=== PATIENT | male | born 2000 | race African-American/Black ===

== ENCOUNTER 2023-02-24 20:53 | Inpatient (IN) | payer BC, SELFPAY ==
--- NOTE | 2023-02-24 22:30 | PC.ADMIT ---
PT IS A 22 YEAR OLD, BLACK, CISGENDER MALE ADMITTED FROM [facility]. PT IS A COLLEGE SENIOR AT [employer] WHO WENT TO [facility] AFTER TELLING HIS SWITCH ENGINEER HE FELT A LITTLE DOWN . CT APPEARS WITH SYMPTOMS OF PSYCHOSIS, RESPONDING TO INTERNAL STIMULI. PT APPEARS PARANOID UPON ADMISSION, ASKING FOR FOOD BUT NOT ACCEPTING IT BECAUSE HE DIDNT SEE IT BE MADE . PT IS AVOIDANT, ONLY ANSWERING QUESTIONS INTERMITTENTLY AND AVOIDING EYE CONTACT. PT DID NOT WANT TO SIGN LEGALS AT THIS TIME BUT DID SIGN A CONDITIONAL VOLUNTARY. PLACED ON 15 MINUTE CHECKS AND ORIENTED TO THE UNIT. PTS TOX SCREEN WAS POSITIVE FOR MARIJUANA ONLY. HIS PARENTS REPORT THAT THIS HAS OCCURRED BEFORE, STATING WHEN HE SMOKES WEED, HE STARTS TO DEVELOP THESE SYMPTOMS . PT STARES BLANKLY MID SENTENCE. PT HAS NO MENTAL HEALTH PROVIDERS AND IS NOT CURRENTLY ON MEDICATIONS. PTS ASSIGNED TO STRUCTURED GROUPS. VITAL SIGNS STABLE. LABS WNL. NO KNOWN ALLERGIES. PT HAS BEEN FAILING HIS CLASSES, CAUSING HIM TO GO TO SUMMER CLASS WHICH HE IS FAILING. PTS FAMILY RESIDES IN [place], WHERE HE STAYS WHEN HE IS NOT AT SCHOOL. PT HAS A DIAGNOSIS OF UNSPECIFIED SCHIZOPHRENIA. NO REPORTED DEPRESSION, AH, OR VH BUT APPEARS TO BE RESPONDING. PT DENIES SI OR HI. PT DOES NOT USE TOBACCO AND ONLY OCCASIONALLY DRINKS ALCOHOL.
[2023-02-25 06:00] VITALS: RESP 16
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
--- NOTE | 2023-02-25 13:04 | HO.PM.IMCN ---
History of Present Illness Data of Consult Service Date: 02/25/23 Primary Care Provider: Unknown Physician HPI Reason for consult: Admission H&P Pt is a 22-year-old male with no significant PMH not on home medications who is admitted to [facility] psychiatry unit after telling his cross country/track and field coach at [facility] he was feeling ?a little down ?and was sent to the ED where he presented with symptoms of psychosis and struggling to communicate in a meaningful way. Medical consult for admission H&P. ?Patient has no acute medical complaints. Denies chest pain/pressure, palpitations. No shortness of breath. Denies fever, chills, nausea, vomiting, diarrhea. No headache, vision changes. Review of Systems Review of Systems: Patient has no acute medical complaints Yes all other systems are reviewed and are negative [facility] Social History Household Members: Family and None Household Members Other:: fam when home from college. alone at college. Housing: Other Housing Other:: [facility] Dorm Do you presently have visiting nurse or other home services: No Patient Tobacco Use Status: Never used Tobacco Smoked in Last 30 Days: No e-Cigarette/Vaping Use: Never Used Patient Interested in Nicotine Replacement: No Patient Given Instructions on How to Stop Smoking: No Second Hand Smoke Exposure: No Use of substances other than those prescribed or required for medical reasons: Yes Substance Use Type: Marijuana Substance Use Frequency: Occasionally Last Used Substance: Days (ago) Currently Displaying Signs/Symptoms of Drug Intoxication Withdrawal: No Any prior treatment program specific to substance use: No Have you been hit, kicked, punched, or otherwise hurt by someone within the past year? If so, by whom?: No Do you feel safe in your current relationship?: No Current Relationship Is there a partner from a previous relationship who is making you feel unsafe now?: No Are you made to feel afraid or neglected: No Advance Directives: No Advance Directives Information Provided: No Do you have thoughts of harming others: None Do you have a plan to hurt others: No Plan Recently lost weight without trying: No Eating poorly because of decreased appetite: No Nutrition Risks: No Nutritional Risk Poor oral hygiene: No Meds Allergies Allergy/AdvReac Type Severity Reaction Status Date / Time No Known Allergies Allergy Verified 02/24/23 21:37 Active Medications: Current Medications Acetaminophen (Acetaminophen 325 Mg Tablet) 650 mg PO Q6H PRN PRN Reason: Headache/Pain Mild Scale (1-3) Al Hydroxide/Mg Hydroxide (Magnesium Hydrox/Alum Hydrox 30 Ml Oral.Susp) 30 ml PO Q6H PRN PRN Reason: Heartburn/Nausea Hydroxyzine HCl (Hydroxyzine Hcl 25 Mg Tablet) 25 mg PO Q6H PRN PRN Reason: Anxiety Magnesium Hydroxide (Milk Of Magnesia 30 Ml Oral.Susp) 30 ml PO DAILY PRN PRN Reason: Constipation Trazodone HCl (Trazodone Hcl 50 Mg Tablet) 50 mg PO BEDTIME MRX1 PRN PRN Reason: Insomnia Physical Exam Vital Signs and Narrative: Vital Signs: Last Vital Signs Resp 16 02/25/23 06:00 BMI result Body Mass Index 30.0 General: AOx3, no acute distress Resp: CTA bilaterally CVS: S1, S2, RRR GI: +BS, NT, no distention Skin: No rash Neuro: Cranial nerves II-XII grossly intact bilaterally. Motor grossly intact bilaterally Extremities: No edema Psych: Pt appears distracted, stares off into space, mostly cooperative with HPI and exam Assessment and Plan (1) Routine history and physical examination of adult: Status: Acute Plan Pt is a 22-year-old male with no significant PMH not on home medications who is admitted to [facility] psychiat[facility] unit after telling his cross country/track and field coach at [facility] he was feeling ?a little down ?and was sent to the ED where he presented with symptoms of psychosis and struggling to communicate in a meaningful way. Medical consult for admission H&P. ?Patient has no acute medical complaints. Mood disorder Plan as per psychiatry Pt otherwise has no significant PMH or acute complaints. Thank you for allowing us to participate in the care of this patient. Signing off at this time. Please let us know if there are any acute complaints or questions. Time Spent With Patient Time: Total time managing care of this patient today ____ minutes.
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
[2023-02-25 18:00] VITALS: RESP 16
--- NOTE | 2023-02-25 19:55 | PC.NURSE ---
pt continues to stare and female patients and staff. New ancillary staff reports pt asked her to come to his room so they can talk . Pt was redirected to assigned executive personal assistant (male) and pt refused. Pt placed on 1:1 for intrusiveness.
--- NOTE | 2023-02-26 01:02 | PC.NURSE ---
pt signed a 3 day on tuesday02/26/23. three day up on 03/02/23
[2023-02-26 06:00] VITALS: BP 149/72; PULSE 75; RESP 16
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
[2023-02-26 16:35] VITALS: BP 134/64; PULSE 76; TEMP 36.9; O2SAT 97
--- NOTE | 2023-02-26 21:03 | PC.NURSE ---
Patient refused HS Risperdal 1 mg po.
[2023-02-27 19:40] VITALS: BP 143/75; PULSE 63; RESP 18; TEMP 36.4; O2SAT 98
--- NOTE | 2023-02-28 00:29 | P.PNPSI_ITS ---
Subjective Subjective Date of Service: 02/27/23 Reason For Visit: unspecified schizophrenia spectrum and other Subjective Notes: Conditional Voluntary and 3 Day Interim History: Patient isolative with intense stare pacing at times less physical intrusion mostly mute Medication Compliance: No Mental Status Exam Mental Status Exam Narrative: Appearance: , intense stare Behavior: guarded and suspicious at times with periods of being overly friendly Psychomotor: at times pacing and restless Speech:hesitant TP: some derailment but mostly tangential thought blocking TC: god talking to him minimally informational Mood: great Affect: paranoid intense Si: denies HI: denies VH/AH: appears internally preoccupied Insight/judgment: impaired x 2.impulsive aggressively intrusive at times Memory/cog: alert, Diagnostics Vital Signs (24Hr): Vital Signs - 24 hr 02/27/23 19:40 Temperature 97.5 F Pulse Rate 63 Respiratory Rate 18 Blood Pressure 143/75 H Pulse Oximetry 98 Oxygen Delivery Method Room Air BMI result Body Mass Index 30.0 Medications Medications Current Medications Acetaminophen (Acetaminophen 325 Mg Tablet) 650 mg PO Q6H PRN PRN Reason: Headache/Pain Mild Scale (1-3) Al Hydroxide/Mg Hydroxide (Magnesium Hydrox/Alum Hydrox 30 Ml Oral.Susp) 30 ml PO Q6H PRN PRN Reason: Heartburn/Nausea Hydroxyzine HCl (Hydroxyzine Hcl 25 Mg Tablet) 25 mg PO Q6H PRN PRN Reason: Anxiety Magnesium Hydroxide (Milk Of Magnesia 30 Ml Oral.Susp) 30 ml PO DAILY PRN PRN Reason: Constipation Olanzapine (Olanzapine 5 Mg Tablet) 5 mg PO Q4H PRN PRN Reason: agitation Risperidone (Risperidone 1 Mg Tablet) 1 mg PO BID [id number] Last Admin: 02/27/23 20:33 Dose: Not Given Trazodone HCl (Trazodone Hcl 50 Mg Tablet) 50 mg PO BEDTIME MRX1 PRN PRN Reason: Insomnia Allergies Allergies Allergy/AdvReac Type Severity Reaction Status Date / Time No Known Allergies Allergy Verified 02/24/23 21:37 Assessment & Plan Assessment & Plan (1) Psychosis: Status: Acute Code(s): F29 - Unspecified psychosis not due to a substance or known physiological condition (2) Cannabis use disorder, moderate, dependence: Status: Acute Code(s): F12.20 - Cannabis dependence, uncomplicated Plan Mr. Alaniz is a 22 year-old male brought to [facility] due to increase paranoia and non sensical speech. Pt positive for cannabinoids. On the unit, pt continues to present with paranoia, no insight into changes in behavior and symptoms affecting his judgment. Some derailment in thought process but mostly tangential. We discussed risks, benefits and alternative treatment options. Pt explained medication can be offered to him and he can declined. PLAN 1. Admit to , CV, 15 minutes checks for safety 2. start risperidone 1mg po BID- pt understands he can refuse. 3. Obtain collateral information 4. Aftercare planning. 02/26/23 risperadol pt refusing tried to discuss dx potential tx feels god is speaking to him denies si hi 02/27/23 Patient continues to refuse treatment may need involuntary treatment Informed Consent: does not understand Reason for continued inpatient stay Substantial Risk for: harm to self, harm to others, inability to function and rapid decompensation Time Spent With Patient Time: Total time managing care of this patient today ____ minutes.
[2023-02-28 06:00] VITALS: BP 134/80; PULSE 75; RESP 16
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
[2023-03-02 09:15] VITALS: BP 132/73; PULSE 92; RESP 16; O2SAT 99
--- NOTE | 2023-03-02 09:31 | PM.PSYDC ---
DS: Providers Provider Date of Service: 03/02/23 Date of admission: 02/24/23 20:53 Date of discharge: 03/02/23 Primary care physician: Unknown Physician Admitting clinician: Zakia Mckenzie Consults: 02/24/23 21:39 Consult to Hospitalist Routine Comment: Consulting Provider: Hospitalist Reason For Exam: medical H&P Attending physician on discharge: Lennox Portillo DS: Diagnosis Discharge Diagnosis (1) Psychosis: Status: Acute (2) Cannabis use disorder, moderate, dependence: Status: Acute Mental Status Exam Mental Status Exam Narrative: Pt is alert and oriented; behavior is cooperative, much more organized in speech and behavior; patient is not in distress; dressed in hospital attire, well groomed with adequate hygiene; mood is described as good and affect less blunted, brighter, more calm and naturally expressive; eye contact appropriate; Speech is much less latent, still soft, but with normal rate and normal prosody; and not pressured; no psychomotor agitation; thought process is linear and goal directed; not disorganized; Thought content on discharge, but also on illness and potential treatment; some paranoid ideations but with some improved insight; denies any SI/HI. No thought blocking; not sure about AH. Patients insight and judgment impaired but improved. DS: Summary Hospital Course Hospital Course: Mr. Alaniz is a 22 year-old male brought to [facility] due to increase paranoia and nonsensical speech. Pt positive for cannabinoids. Hospital course: On admission, pt continues to present with paranoia, no insight into changes in behavior and symptoms affecting his judgment. Some derailment in thought process but mostly tangential. Medication management explained but patient declined. Patient with disorganized behavior and early on admission, asked to talk with the female staff but then started declaring his love for her, put his hand on her leg and tried to kiss her; she was able to slip free. Immediately afterward pt appeared irritable, but did not approach her again. Patient's roommate also reported patient came over to his bed and touched his back making roommate uncomfortable. After the weekend, this technical proposal writer met with patient and asked about the incident. He acknowledged that they were having a romantic exchange but denied and seemed to have no memory that he touched her at all. He also denied having touched his roommate's back and was distressed that about these two accusations. Over subsequent days, patient improved some and expressed some insight that he does struggle with thinking clearly and expressed that he sometimes gets confused which interferes with school work and other relationships. Patient was relieved to learn that there is helpful for this struggle however he remains resistant to medication treatment and remained focused on discharging, wanting to get back to school. Continued to seem to do better and agreed to get therapist back at school, acknowledging that he probably needs help/guidance in navigating his thoughts and feelings. Later on in admission, another incident occurred when patient stood in front of a male staff, blocking the staff person's pathway.? The staff walked around him as patient glared. The Following day, technical proposal writer and patient discussed this incident. Patient explained I felt threatened.? The space he was in...? I knew this person was uncomfortable with my presence.? I felt like he might hurt me.. Patient explained his solution was to business consult front of him to see if this person wanted to challenge him.? Chaplaincy explained that patient misinterpreted this persons intent to which patient fully agreed; he also agreed that he misinterpreted the romantic connection he felt with a female staff last week.? With further discussion, patient continued to demonstrate improved insight and acknowledged that he may in fact have a psychiatric illness. Patient had a logical, linear, well spoken and appropriate discussion about his illness demonstrating improved organizational speech and behavior. Although he did not want to remain on the unit longer or try medications, he further acknowledged that he may at some point, even the near future need medication for psychiatric illness. Patient and technical proposal writer discussed the symptoms of psychotic illness and patient agreed they are present; he feels he is doing better than when he first arrived and so remains hopeful that he will continue to progress and be okay without medication. He shared about his hesitancy saying his perception of doctors and hospitals is different than this technical proposal writer's and he worries about medication from what he has heard and seen in the past. Despite his hesitancy he remains open to the fact that his need for medication may eventually outweigh his concerns. Patient acknowledged that he struggles to distinguish real from perceived situations (i.e. Threats or romantic interest) and that he will need help dealing with this. Patient remains willing to engage with outpatient therapist and psychiatric provider; he shared that he has good rapport with coaching staff and encouraged technical proposal writer to call his coaches and share information. He said he would be very willing to reach out to them and others if he felt he needed more help. Patient also agreed that smoking cannabis is likely making things worse and he says he will not do it any longer. Chaplaincy was careful to explain the risks of not taking medication including worsening symptoms and the potential to compromise his ability to perform well in school or continue with football; patient understood this was a possibility however, as mentioned earlier, he remained hopeful that he will continue to progress and be able to manage without medication at this time. Patient has given verbal permission and in fact encourage is technical proposal writer and team to discuss his case with staff/administration/coaching at school. Chaplaincy discussed case with mental health staff at [facility]. Patient will be seeing an athletic team therapist, Jorge Alberto, daily and having official meetings with him 2 times a week. Jorge Alberto reported the staff has been aware of Sami's burgeoning struggles for awhile and continue to keep close tabs on him. At this time, patient remains focused on discharge and his 3 day notice is coming due. While his full diagnosis has yet to fully declare itself, it seems likely that patient's symptoms will continue and may even worsen over time without psychotropic medication treatment. That said, he has demonstrated improved insight and functioning since admission, even without the benefit of medication, and now acknowledges that he likely has a psychiatric illness that may in fact require medication, a significant step forward. Patient has extensive support back at school and both administrative and coaching staff aware of patient's struggles. Also his father is planning to fly to patient's school so as to be present and help his son. Patient is not in imminent risk for harm to self or others and at this time patient does not meet criteria for involuntary commitment. His request for discharge honored. Time spent discussing smoking cessation with patient: 3 to 10 minutes Status at Discharge Functional status at discharge: independent ambulation Overall status at discharge: patient is not back to baseline Time Spent with Patient Time attestation: Total time managing care of this patient today ____ minutes. Time spent: Greater than 30 minutes Discharge Plan Discharge Anticipated Discharge Date/Time: 03/02/23 11:30 Patient Disposition: Home, Self-Care Discharge Diagnosis: Psychotic disorder, unspecified Referrals: SENIOR PROCUREMENT MANAGER Intake kristina Ellison [Other] - 03/07/23 3:00 pm [facility] [Other] - 1 Week (Call to schedule an appt.) [facility] business improvement manager [Other] - 1 Week (They will be reaching out to offer academic support and information. ) Discharge Orders: Discharge Order (Routine); Ordered 03/02/23 Ordered By: Lennox Portillo Diet: Regular diet Activity on Discharge: As tolerated Stand Alone Forms: Patient Portal Discharge page, Community Support Care Plan Goals: Maintain mood and safe behaviors Take medications as prescribed Continue to pursue sobriety from cannabis Practice coping skills Continue with outpatient providers and reach out to them as needed Health Concerns: Mood stability and behaviors Sobriety from Cannabis Left shoulder injury Plan of Treatment: Follow up with your PCP, psychiatric provider and other outpatient providers regarding above concerns Take medications as prescribed Assessment: Risk assessment at time of discharge:? Patient was interviewed prior to discharge and found to be fully oriented and without any SI or HI. Patient has insight and demonstrates good judgment in terms of wanting to pursue treatment. Patient is not in imminent risk of harm to self or others and has a safety plan that includes presenting to the closest ER or calling 911 if feeling unsafe.? Patient has been observed closely by nursing and unit staff throughout admission; patient has not engaged in any behaviors that suggest dangerousness to self or others and has demonstrated appropriate behaviors and impulse control Discharge Date/Time: 03/02/23 11:45
== END 2023-03-02 11:45 | disposition home or self-care (01) | DRG 751 ==
PROVIDERS: Admitting Provider Psychiatry & Neurology Psychiatry; Visit Provider Psychiatry & Neurology Psychiatry
DX: F29 Unspecified psychosis not due to a substance or known physiological condition (principal); F12.20 Cannabis dependence, uncomplicated

== ENCOUNTER → 2023-02-24 20:53 | Outpatient (BNV) | payer BC, SELFPAY | PROVIDERS: Admitting Provider Psychiatry & Neurology Psychiatry; Visit Provider Student in an Organized Health Care Education/Training Program | DX: Z02.2 Encounter for examination for admission to residential institution (principal) | CPT/HCPCS: 99429 ==

== ENCOUNTER → 2023-02-24 20:53 | Outpatient (BNV) | payer SELFPAY | PROVIDERS: Admitting Provider Psychiatry & Neurology Psychiatry; Visit Provider Psychiatry & Neurology Psychiatry | DX: F20.0 Paranoid schizophrenia (principal); F29 Unspecified psychosis not due to a substance or known physiological condition; F12.20 Cannabis dependence, uncomplicated | CPT/HCPCS: 99231; 99232 ==

== ENCOUNTER → 2023-02-24 20:53 | Outpatient (BNV) | payer SELFPAY | PROVIDERS: Admitting Provider Psychiatry & Neurology Psychiatry; Visit Provider Social Worker | DX: F29 Unspecified psychosis not due to a substance or known physiological condition (principal); F12.20 Cannabis dependence, uncomplicated | CPT/HCPCS: 90792; 99231; 99232; 99239 ==